=== PATIENT | female | born 1955 | race Caucasian/White ===

== ENCOUNTER 2017-10-22 12:24 | Day surgery (SDC) | payer OTHER, BC ==
[~2017-10-22] VITALS: Ht 165.1 cm; Wt 73.9 kg
[~2017-10-22 12:24] MED LIST: BUPR150T2 PO; Budeprion Xl300 MG; CPAP; CYCL10 PO; ERGO50000 PO; Estrace Vagin42.5 GM; FAMO20 PO; FISH1000 PO; HYDR1TAB94; Hair, Skin & N1 EACH; IBUP600 PO; LORA.5; MAGNESIUM PO; MULTIVITAMIN PO; PIRO20; PROACE100 PO
== END 2017-10-22 14:45 | disposition home or self-care (01) ==
LOC: ORSCSDS 12:24
PROVIDERS: Internal Medicine Gastroenterology
PROC: 0DJD8ZZ Inspection of Lower Intestinal Tract, Via Natural or Artificial Opening Endoscopic (ICD-10-PCS; principal; 2017-10-22 13:30)
DX: R10.32 Left lower quadrant pain (principal); K57.30 Diverticulosis of large intestine without perforation or abscess without bleeding; K64.8 Other hemorrhoids; G47.33 Obstructive sleep apnea (adult) (pediatric); Z79.899 Other long term (current) drug therapy; Z87.891 Personal history of nicotine dependence
CPT/HCPCS: J7120

== ENCOUNTER 2019-01-23 12:18 | Day surgery (SDC) | payer OTHER, BC ==
[~2019-01-23] VITALS: Ht 162.6 cm; Wt 77.2 kg
[~2019-01-23 12:18] MED LIST changes: +LEVSOD75; +Norco 5-325 Ta1 EACH
--- NOTE | 2019-01-23 15:24 | NUR ---
01/23/19 1524 Deepa Sanders RECIEVED REPORT FROM [facility]. PT RESTING IN RECLINER EATING COOKIES. PT DENIES PAIN AND NAUSEA AT THIS TIME. DC INSTRUCTIONS COMPLETED. ICE AND ELEVATION IMPLEMENTED IN SDU. CALL LIGHT WITHIN REACH. PT WAITING FOR TO GET OFF WORK.
== END 2019-01-23 15:19 | disposition home or self-care (01) ==
LOC: ORSCSDS 12:18
PROVIDERS: Podiatrist
PROC: 0QSN04Z Reposition Right Metatarsal with Internal Fixation Device, Open Approach (ICD-10-PCS; principal; 2019-01-23 14:00)
DX: M20.11 Hallux valgus (acquired), right foot (principal); M77.41 Metatarsalgia, right foot; G47.33 Obstructive sleep apnea (adult) (pediatric); E03.9 Hypothyroidism, unspecified; Z79.899 Other long term (current) drug therapy
CPT/HCPCS: C1713; J0690; J1100; J1885; J2001; J2250; J2405; J2704; J3010; J7120

== ENCOUNTER → 2019-05-02 | Outpatient (CLI) | payer OTHER, BC | LOC: LAB 12:28 → LAB SHORT 12:28 | DX: L08.9 Local infection of the skin and subcutaneous tissue, unspecified (principal); L30.9 Dermatitis, unspecified; L21.8 Other seborrheic dermatitis; D22.5 Melanocytic nevi of trunk; D22.71 Melanocytic nevi of right lower limb, including hip; D22.72 Melanocytic nevi of left lower limb, including hip; L82.1 Other seborrheic keratosis | CPT/HCPCS: 87070; 87205 ==

== ENCOUNTER → 2022-09-21 | Outpatient (CLI) | payer OTHER | LOC: LAB SHORT 07:49 → PLD 07:49 | DX: D48.5 Neoplasm of uncertain behavior of skin (principal) | CPT/HCPCS: 88312 ==

== ENCOUNTER → 2023-02-05 | Outpatient (CLI) | payer OTHER ==
[2023-02-05 15:08] LABS: Albumin, Blood 3.5 g/dL (3.4-5.0); Albumin/Globulin Ratio 0.8 (0.8-1.8); Bilirubin, Total 0.3 mg/dL (0.1-1.0); Calcium, Blood 9.6 mg/dL (8.5-10.1); Creatinine, Blood 0.84 mg/dL (0.40-1.00); Globulin, Blood 4.4 g/dL (2.2-4.0); Potassium, Blood 4.1 mmol/L (3.5-5.5); Total Protein, Blood 7.9 g/dL (6.4-8.2)
== END | disposition home or self-care (01) ==
LOC: LAB SHORT 14:52 → LAB 14:52
PROVIDERS: Family Medicine
DX: N39.0 Urinary tract infection, site not specified (principal); R73.9 Hyperglycemia, unspecified; R81 Glycosuria
CPT/HCPCS: 80053; 83036; 87077; 87086; 87147; 87186

== ENCOUNTER → 2023-02-13 | Outpatient (CLI) | payer OTHER | END | disposition home or self-care (01) | LOC: LAB 08:12 → LAB SHORT 08:12 | DX: N39.0 Urinary tract infection, site not specified (principal) | CPT/HCPCS: 87077; 87086; 87186 ==

== ENCOUNTER → 2023-10-31 | Outpatient (CLI) | payer OTHER ==
[2023-10-31 14:36] LABS: Source, Urine Clean Catch
[2023-10-31 16:11] LABS: Appearance, Urine Hazy (Clear); Blood, Urine 2+ (Neg); Glucose Qualitative, Urine Neg (Neg); Ketones, Urine Neg (Neg); Leukocyte Esterase, Urine 3+ (Neg); Nitrite, Urine Pos (Neg); Protein, Urine 1+ (Neg); Urobilinogen, Urine 3+ (Normal)
[2023-10-31 16:19] LABS: Bilirubin, Urine 2+ (Neg); Color, Urine Amber (P-Yellow)
[2023-10-31 16:20] LABS: White Blood Cells, Urine TNTC /hpf (0-5)
[2023-10-31 16:21] LABS: Bacteria Many /hpf; Renal Epithelial Rare /hpf (0-Rare); Squamous Epithelial Cells Mod /hpf (Few); Transitional Epithelial Cells Rare /hpf (0-Rare)
== END ==
LOC: LAB 14:30 → LAB SHORT 14:30 → LAB FUT 10-30 14:20
PROVIDERS: Urology
DX: N39.0 Urinary tract infection, site not specified (principal)
CPT/HCPCS: 81001; 87077; 87086; 87186

== ENCOUNTER → 2024-05-22 | Outpatient (CLI) | payer OTHER ==
[2024-05-31 00:41] LABS: HPV HIGH RISK BY TMA Not Detected; HPV SOURCE Cervical/Vag
== END ==
LOC: LAB 13:04 → LAB SHORT 13:04
PROVIDERS: Obstetrics & Gynecology
DX: Z01.419 Encounter for gynecological examination (general) (routine) without abnormal findings (principal)
CPT/HCPCS: 87624; G0123